=== PATIENT | female | born 1945 | race Caucasian/White ===

== ENCOUNTER 2016-11-28 13:32 | Emergency (ER) | payer MEDICARE, OTHER ==
[~2016-11-28 13:32] MED LIST: ACET325T11 PO; DEXT5LOZ3 MT; DIPH25 PO; HYDR1CRE TOP; LORA-392 PO; LORA-474 PO; LORTA5 PO; MILKSUS5 PO; PALI117P IM; PRAVACOL PO; SELE2.5%T TOP; ST J81CH PO; TUMS500C CHEW; cogentin PO; depakote PO
[2016-11-28 13:50] VITALS: BP 119/59; PULSE 94; RESP 18; TEMP 99.1; O2SAT 96
[2016-11-28] MEDS ORDERED: BENZ0.5T PO (13:59)
[2016-11-28] MEDS ORDERED: MULT1TAB84 PO (13:59)
[2016-11-28] MEDS ORDERED: BISA10SU3 RECTAL (13:59)
[2016-11-28] MEDS ORDERED: ASPI81CH CHEW (13:59)
[2016-11-28] MEDS ORDERED: SENN8.6T8 PO (13:59)
[2016-11-28] MEDS ORDERED: HALO5TAB PO (13:59)
[2016-11-28] MEDS ORDERED: LACT10SO48 PO (13:59)
[2016-11-28] MEDS ORDERED: FLEE5TAB PO (13:59)
[2016-11-28] MEDS ORDERED: NORC5TAB PO (13:59)
[2016-11-28] MEDS ORDERED: DIVA125C PO (13:59)
[2016-11-28] MEDS ORDERED: D 10CHW PO (13:59)
[2016-11-28] MEDS ORDERED: ACET325T PO (13:59)
[2016-11-28] MEDS ORDERED: LAMO100 PO (13:59)
--- NOTE | 2016-11-28 14:18 | PD ---
HPI Chief Complaint: Injury Time Seen by Provider: 14:12 Travel History International Travel<30 days: No Contact w/Intl Traveler<30days: No Traveled to known affect area: No History of Present Illness HPI 71-year-old female came from the [place] [facility] brought by EMS for left leg injury. Patient is mostly nonambulatory and one of the staff was trying to move her out of the bed when her leg got caught on the rail. Since then she has been complaining of leg pain. They did an x-ray which showed fracture. She was sent to the urgent care but they sent her here. Patient is awake and has a thick speech but does know about her leg pain and the injury. Her vital signs were relatively stable. FOR[facility]LY [facility] Past Medical History Narrative Medical List of her past medical, surgical, social and family history was reviewed from the nursing note. Arthritis: Yes Asthma: No Autoimmune Disease: No Blood Disorders: No Bipolar Disorder: Yes Anxiety: Yes Depression: Yes Heart Rhythm Problems: No Cardiovascular Problems: Yes High Cholesterol: Yes Chest Pain: Yes Congestive Heart Failure: No COPD: Yes Cerebrovascular Accident: No Diabetes: No Diminished Hearing: Yes ([place] BOTH EARS) Gastrointestinal Disorders: Yes GERD: Yes Genitourinary: Yes (STREESS INCONTINENCE) Hypertension: Yes Kidney Stones: No Musculoskeletal: Yes Neurologic: Yes Psychiatric: Yes Respiratory: Yes (C/O " RECENT COLD") Myocardial Infarction: No Renal Failure: Yes Schizophrenia: Yes Seizures: Yes Thyroid Disease: No PNEUMOCCOCAL Vaccine (Year): 3 Menopausal: Yes : 1 Miscarriage: 1 : 1 Tubal Ligation: Yes Past Surgical History Abdominal Surgery: Yes (CHOLECYSTECTOMY) Cholecystectomy: Yes Genitourinary Surgery: Yes (TUBAL LIGATION) Oral Surgery: Yes (TONSILLECTOMY) Tonsillectomy: Yes Other Surgery: Yes (HARSHA) Social History Alcohol Use: No (claims to no longer drink) Tobacco Use: No (quit) Substance Use: No Allergies-Medications (Allergen,Severity, Reaction): Coded Allergies: Penicillin (Verified Allergy, Severe, 11/28/16) Sulfa (Verified Allergy, Severe, 11/28/16) Vistaril (Verified Allergy, Severe, JOINTS ACHE, HANDS SWELL., 11/28/16) Lipitor (Verified Allergy, Intermediate, SEVER PAIN, 11/28/16) Comments List of her allergies reviewed from the nursing note. Reported Meds & Prescriptions Reported Meds & Active Scripts Active Reported Senna S (Sennosides-Docusate Sodium) 8.6-50 Mg Tab 2 Tab PO HS [place] (Hydrocodone-Acetaminophen) 5-325 mg Tab 1 Tab PO Q8HR PRN Multivitamin Adults (Multiple Vitamins W/ Minerals) 1 Tab 1 Tab PO DAILY Lamictal (Lamotrigine) 100 Mg Tab 100 Mg PO BID Constulose Liq (Lactulose) 10 Gm/15 Ml Soln 30 Ml PO BID Haloperidol 5 Mg Tab 5 Mg PO BID Depakote Sprinkles (Divalproex Sodium) 125 mg Cap 500 Mg PO BID D 1000 (Cholecalciferol) 1,000 Unit Chew 1,000 Units PO DAILY Bisacodyl Supp (Bisacodyl) 10 Mg Supp 10 Mg RECTAL Q3D Bisacodyl EC (Bisacodyl) 5 Mg Tabec 10 Mg PO BID Benztropine (Benztropine Mesylate) 0.5 Mg Tab 0.5 Mg PO BID Aspirin 81 Mg Chew 81 Mg CHEW DAILY Acetaminophen 325 Mg Tab 650 Mg PO Q4H PRN Narrative Medication List of her home medications reviewed from the nursing note. Review of Systems Except as stated in HPI: all other systems reviewed are Neg Physical Exam Narrative GENERAL: Awake, alert, elderly, looks older than her age, moderate distress SKIN: Focused skin assessment warm/dry. HEAD: Atraumatic. Normocephalic. EYES: Pupils equal and round. No scleral icterus. No injection or drainage. ENT: No nasal bleeding or discharge. Mucous membranes pink and moist. NECK: Trachea midline. No JVD. CARDIOVASCULAR: Regular rate and rhythm. No murmur appreciated. RESPIRATORY: No accessory muscle use. Clear to auscultation. Breath sounds equal bilaterally. GASTROINTESTINAL: Abdomen soft, non-tender, nondistended. Hepatic and splenic margins not palpable. MUSCULOSKELETAL: No obvious deformities. Decreased range of motion of the left leg at the hip and knee joint. Distal pulses present No clubbing. No cyanosis. No edema. NEUROLOGICAL: Awake and alert. No obvious cranial nerve deficits. Motor grossly within normal limits. Normal speech. PSYCHIATRIC: Appropriate mood and affect; insight and judgment normal. Data Data Last Documented VS Orders Hip, Uni(Ap&Lat) W Ap Pelvis (11/28/16 ) Femur (Ap & Lat/2vws) (11/28/16 ) Tibia/Fibula (Ap/Lat) (11/28/16 ) Morphine Inj (Morphine Inj) (11/28/16 14:30) Support Splint (11/28/16 15:11) Fiberglass Short Leg Splint Ad (11/28/16 ) Fiberglass Sugartong Sp Ad Sl (11/28/16 ) MDM Medical Decision Making Medical Screen Exam Complete: Yes Emergency Medical Condition: Yes Medical Record Reviewed: Yes Differential Diagnosis Tib-fib fracture, femur fracture, hip fracture Narrative Course 3:29 PM x-ray of her left hip, femur and tib-fib was done. Patient has a nondisplaced spiral fracture of the tibial shaft. I have ordered for a Barber splint. Medicated for pain. I put in a call out for orthopedist. It seems like patient to be treated as an outpatient just by splinting. Procedures EKG Prior to Arrival: No Diagnosis Primary Impression: Fracture of tibial shaft, closed Qualified Code: S82.245A - Closed nondisplaced spiral fracture of shaft of left tibia, initial encounter Referrals: Brian Hopkins MD 3 days Additional Instructions: Please call the orthopedist whose name and number been provided to you. Get an appointment for next week. Keep the splint clean and dry at all times. Please return to the ER if the condition worsens or any other new concerns. Med/Other Pt SpecificInfo: No Change to Meds Disposition: DISCHARGE HOME Condition: Aldair Rajput MD Nov 28, 2016 14:18 Med/Other Pt SpecificInfo: No Change to Meds Disposition: DISCHARGE HOME Condition: Aldair Rajput MD Nov 28, 2016 14:18
[2016-11-28] MEDS ORDERED: MORPHINE SULFATE 4 MG/ML INJ IM ONE (14:30)
--- NOTE | 2016-11-28 15:12 | RADHPO ---
EXAM DATE/TIME: 11/28/2016 14:24 [facility] COMPARISON: No previous studies available for comparison. INDICATIONS : Left hip pain post fall. MEDICAL HISTORY : Hypertension. Hypercholesterolemia. Gastroesophageal reflux disease. COPD. Seizures. Arthritis. SURGICAL HISTORY : Tonsillectomy. Total knee replacement, left. Cholecystectomy. ENCOUNTER: Initial ACUITY: 2 days PAIN SCORE: 10/10 LOCATION: Left hip FINDINGS: Extensive vascular calcifications are noted. Bone density is normal. Alignment is deep tomic. Fracture is not appreciated. CONCLUSION: Negative for fracture. Dereje Silva MD FACR on November 28, 2016 at 15:04 Board Certified Radiologist. This report was verified electronically.
--- NOTE | 2016-11-28 15:12 | RADHPO ---
EXAM DATE/TIME: 11/28/2016 14:36 [facility] COMPARISON: No previous studies available for comparison. INDICATIONS : Left femur pain post fall. MEDICAL HISTORY : Hypertension. Hypercholesterolemia. Gastroesophageal reflux disease. COPD. Arthritis. Seizures. SURGICAL HISTORY : Tonsillectomy. Tubal ligation. Cholecystectomy. ENCOUNTER: Initial ACUITY: 2 days PAIN SCORE: 10/10 LOCATION: Left femur FINDINGS: Extensive vascular calcifications are noted. Alignment is anatomic. Fracture is not appreciated. CONCLUSION: Negative for fracture. Dereje Silva MD FACR on November 28, 2016 at 15:08 Board Certified Radiologist. This report was verified electronically.
--- NOTE | 2016-11-28 15:13 | RADHPO ---
EXAM DATE/TIME: 11/28/2016 14:40 [facility] COMPARISON: No previous studies available for comparison. INDICATIONS : Left tibia/fibula pain post fall. MEDICAL HISTORY : Hypertension. Hypercholesterolemia. Gastroesophageal reflux disease. Seizures. Arthritis. COPD. SURGICAL HISTORY : Tubal ligation. Tonsillectomy. Cholecystectomy. ENCOUNTER: Initial ACUITY: 2 days PAIN SCORE: 10/10 LOCATION: Left tibia/fibula FINDINGS: Spiral fracture is seen of the distal third of the tibia in reasonable alignment. Fibula is intact. CONCLUSION: Spiral fracture distal third of the tibia. Dereje Silva MD FACR on November 28, 2016 at 15:01 Board Certified Radiologist. This report was verified electronically.
[2016-11-28 19:00] VITALS: BP 120/63; PULSE 92; RESP 18; TEMP 98.8; O2SAT 95
== END 2016-11-28 19:45 ==
LOC: PHED 13:32
DX: S82.392A Other fracture of lower end of left tibia, initial encounter for closed fracture (principal); E78.00 Pure hypercholesterolemia, unspecified; J44.9 Chronic obstructive pulmonary disease, unspecified; I10 Essential (primary) hypertension; Z87.891 Personal history of nicotine dependence; W50.2XXA Accidental twist by another person, initial encounter; Y93.89 Activity, other specified; Y92.122 Bedroom in nursing home as the place of occurrence of the external cause; Y99.8 Other external cause status
CPT/HCPCS: 29515; 73502; 73552; 73590; 96372; 99283; J2270